=== PATIENT | male | born 1990 | race Two or more races ===

== ENCOUNTER 2020-09-24 21:04 | Emergency (ER) | payer MEDICAID, OTHER ==
[~2020-09-24] VITALS: Ht 167.6 cm; Wt 65.8 kg
[2020-09-25 00:45] VITALS: BP 122/80
== END 2020-09-25 00:58 | disposition home or self-care (01) ==
LOC: ER 21:07
DX: S13.9XXA Sprain of joints and ligaments of unspecified parts of neck, initial encounter (principal); S43.402A Unspecified sprain of left shoulder joint, initial encounter; S63.92XA Sprain of unspecified part of left wrist and hand, initial encounter; S09.8XXA Other specified injuries of head, initial encounter; V19.40XA Pedal cycle driver injured in collision with unspecified motor vehicles in traffic accident, initial encounter; Y93.89 Activity, other specified; Y92.89 Other specified places as the place of occurrence of the external cause; Y99.8 Other external cause status
CPT/HCPCS: 70450; 70486; 72125; 73030; 73130

== ENCOUNTER 2022-07-22 18:37 | Emergency (ER) | payer MEDICAID ==
[~2022-07-22] VITALS: Ht 172.7 cm; Wt 62.5 kg
[2022-07-22 21:49] VITALS: BP 127/76
== END 2022-07-22 21:20 | disposition home or self-care (01) ==
LOC: ER 18:39
DX: R51.9 Headache, unspecified (principal)
CPT/HCPCS: 70450